=== PATIENT | female | born 1975 | race Two or more races ===

== ENCOUNTER 2017-07-28 16:00 | Emergency (ER) | payer OTHER ==
[~2017-07-28] VITALS: Ht 154.9 cm; Wt 63.0 kg
[2017-07-28 16:03] VITALS: BP 113/75
[2017-07-28] MEDS ORDERED: METHOTREXATE/PF 25 MG/ML, 2ML IM ONE ×2 (17:00)
== END 2017-07-28 18:02 | disposition home or self-care (01) ==
LOC: ED 17:41
DX: O00.90 Unspecified ectopic pregnancy without intrauterine pregnancy (principal)
CPT/HCPCS: 96372; 99284; J9250